=== PATIENT | female | born 1990 | race Caucasian/White ===

== ENCOUNTER 2021-04-09 11:55 | Outpatient (CLI) | payer OTHER ==
--- NOTE | 2021-04-09 12:31 | XRAY Report ---
PROCEDURE: Chest 2 View X-Ray INDICATIONS: CP ON BREATHING TECHNIQUE: 2 view(s) of the chest. COMPARISON: None. FINDINGS: SUPPORT DEVICES: None. LUNG/PLEURA: No focal consolidation or pulmonary edema. No pleural effusion or space-occupying pneumo thorax. MEDIASTINUM: The cardiomediastinal silhouette is within normal limits. BONES/SOFT TISSUES: No acute abnormality. IMPRESSION: 1.No acute cardiopulmonary abnormality. Reviewed by: Onur Jane MD on 04/09/2021 12:30 PM PDT Approved by: Onur Jane MD on 04/09/2021 12:30 PM PDT Station ID: [id number]
== END 2021-04-09 11:56 | disposition home or self-care (01) ==
LOC: DI.N 11:55
PROVIDERS: ATTEND Family Medicine
DX: R07.1 Chest pain on breathing (principal)

== ENCOUNTER 2023-10-12 15:37 | Outpatient (CLI) | payer OTHER ==
--- NOTE | 2023-10-13 08:40 | Ultrasound Report ---
PROCEDURE: Pelvic Complete INDICATIONS: FEMALE INFERTILITY TECHNIQUE: Real-time transabdominal scanning was performed of the pelvic organs, with image documentation. Parul ent declined transvaginal imaging. COMPARISON: None FINDINGS: Uterus: Uterus is anteverted and normal in size at 9.1 x 2.9 x 3.8 cm. The myometrium is homogeneou s. The endometrium measures 5.6 mm in combined thickness. No visible myometrial or endometrial mass es. No abnormal vascular flow. Ovaries: The right ovary measures 2.8 x 1.7 x 2.6 cm, with a calculated ovarian volume of 6.6 cc. T he left ovary measures 2.2 x 1.3 x 1.9 cm, with a calculated ovarian volume of 2.8 cc. The ovaries h ave a normal transabdominal sonographic appearance. Less than 12 follicles can be seen in each ovary . No adnexal masses are seen. No cystic lesions measuring greater than 3 cm. Other: No free pelvic fluid. IMPRESSION: Normal transabdominal pelvic ultrasound. Reviewed by: Diane Reich MD on 10/13/2023 8:39 AM PDT Approved by: Diane Reich MD on 10/13/2023 8:39 AM PDT Station ID: [id number]
== END 2023-10-12 15:38 | disposition home or self-care (01) ==
LOC: DI 15:37
PROVIDERS: ATTEND Student in an Organized Health Care Education/Training Program
DX: N97.2 Female infertility of uterine origin (principal)